=== PATIENT | male | born 1950 | race Caucasian/White ===

== ENCOUNTER 2018-05-02 10:48 | Emergency (ER) | payer MEDICARE, OTHER ==
[2018-05-02] MEDS: HYDROCODONE/APAP (5/325) TAB PO (11:32)
== END 2018-05-02 11:37 | disposition home or self-care (01) ==
LOC: FTE 10:48
DX: K08.89 Other specified disorders of teeth and supporting structures (principal); E11.9 Type 2 diabetes mellitus without complications
CPT/HCPCS: 99283

== ENCOUNTER 2018-11-07 10:13 | Emergency (ER) | payer OTHER, MEDICARE | END 2018-11-07 13:25 | disposition home or self-care (01) | LOC: E/R 10:13 | DX: H61.22 Impacted cerumen, left ear (principal); E11.9 Type 2 diabetes mellitus without complications | CPT/HCPCS: 99282 ==